=== PATIENT | male | born 1980 | race African-American/Black ===

== ENCOUNTER 2019-02-05 02:10 | Inpatient (IN) | payer BC, SELFPAY ==
[2019-02-05] MEDS ORDERED: HYDROcodone/Acetaminophen 10/325 mg Tablet ONE (03:02)
[2019-02-05] MEDS ORDERED: Ketorolac Tromethamine 30 MG/ML VIAL ONE (04:29)
[2019-02-05 04:36] LABS: #Lymphocytes 0.8 thou/uL (1.20-3.40); #Monocytes 0.1 thou/uL (0.11-0.59); #Neutrophils 2.8 thou/uL (1.40-6.50); %Basophils 0.2 % (0.0-1.0); %Eosinophils 0.3 % (0.0-10.0); %Lymphocytes 20.5 % (21.0-51.0); %Monocytes 3.9 % (0.0-10.0); Hemoglobin 16.1 g/dL (14.0-18.0); Mean Corpuscular HGB CONC 34.8 g/dL (32.0-36.0); Mean Corpuscular Hemoglobin 31.5 pg (27.0-31.0); Mean Corpuscular Volume 90.5 fL (78.0-98.0); Mean Platelet Volume 7.8 fL (7.4-10.4); Platelet Count 185 thou/uL (130-400); RBC Distribution Width 11.9 % (11.5-14.5); Red Blood Cell (RBC) Count 5.12 mill/uL (4.70-6.10); White Blood Cell (WBC) Count 3.7 thou/uL (4.8-10.8)
[2019-02-05] MEDS ORDERED: Promethazine HCl 25 MG/ML VIAL IM PRN ×2 (04:40→19:54)
[2019-02-05] MEDS ORDERED: Ondansetron PF 4 MG/2 ML Vial IVP PRN (04:40)
[2019-02-05] MEDS ORDERED: Dextrose 5% in Water 1,000 ML IV PRN (04:40)
[2019-02-05] MEDS ORDERED: HumaLOG 300 UNITS/3 ML VIAL SC PRN (04:40)
[2019-02-05] MEDS ORDERED: Dextrose 50% Abboject 50 ML SYRINGE SLOW IVP PRN (04:40)
[2019-02-05] MEDS ORDERED: hydrALAZINE 20 MG/ML VIAL SLOW IVP PRN (04:40)
[2019-02-05] MEDS ORDERED: traMADol HCl 50 MG TAB PO PRN ×2 (04:43)
[2019-02-05 04:58] LABS: ALT (SGPT) 28 U/L (8-55); AST (SGOT) 26 U/L (5-34); Albumin 5.1 g/dL (3.5-5.0); Alkaline Phosphatase 62 U/L (40-110); Anion Gap 13 mmol/L (10-20); BUN (Urea Nitrogen) 6 mg/dL (8.9-20.6); Bilirubin, Total 0.4 mg/dL (0.2-1.2); Calc. Creatinine Clearance 0 mL/min (70-130); Calcium 10.1 mg/dL (7.8-10.44); Carbon Dioxide 29 mmol/L (22-29); Chloride 103 mmol/L (98-107); Estimated GFR-MDRD Greater than 90; Globulin 3.7 g/dL (2.4-3.5); Glucose 111 mg/dL (70-105); Potassium 3.7 mmol/L (3.5-5.1); Protein, Total 8.8 g/dL (6.0-8.3); Sodium 141 mmol/L (136-145)
[2019-02-05] MEDS ORDERED: CEFAZOLIN 1 GM VIAL SLOW IVP SCH (05:00)
[2019-02-05] MEDS ORDERED: CEFAZOLIN 2 GM in Premix Bag 1 BAG IVPB SCH (05:00)
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
[2019-02-05] MEDS: Sodium Chloride 0.9% 1,000 ML IV SCH ×3 (06:36→22:31)
[2019-02-05] MEDS: Acetaminophen 1,000 MG in Premix Bag 1 BAG IVPB SCH ×4 (06:36→23:35)
[2019-02-05] MEDS: Ketorolac Tromethamine 30 MG/ML VIAL IVP SCH ×3 (06:37→19:00)
[2019-02-05 06:59] VITALS: BMI 24.2
[2019-02-05] MEDS: Famotidine/PF 20 mg/2ml Vial SLOW IVP SCH ×2 (08:21→22:31)
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
[2019-02-05] MEDS: Morphine 4 MG/ML VIAL SLOW IVP PRN ×2 (10:14→13:03)
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
[2019-02-05] MEDS ORDERED: Fentanyl 100 MCG/2 ML VIAL ONE (15:18)
[2019-02-05] MEDS ORDERED: Lidocaine 2% Jelly 5 ML TUBE ONE (15:18)
[2019-02-05] MEDS ORDERED: HYDROmorphone 0.5 MG/0.5 ML SYRINGE ONE ×2 (15:18→18:34)
[2019-02-05] MEDS ORDERED: Midazolam HCl 2 mg/2 ml Vial ONE (15:18)
[2019-02-05] MEDS ORDERED: Oxymetazoline HCl 0.05% ( 15 ML ) ONE (15:18)
[2019-02-05] MEDS ORDERED: Chlorhexidine Gluconate 15 ML UDCUP SSP ONE (15:19)
[2019-02-05] MEDS ORDERED: Lidocaine 1% w/Epinephrine 1:100K 20 ML VIAL ONE (15:19)
[2019-02-05] MEDS ORDERED: Hydrocortisone 1% Cream 30 GM TUBE ONE (15:19)
[2019-02-05] MEDS ORDERED: Rocuronium Bromide 10 MG/ML (10ML VIAL) ONE (16:00)
[2019-02-05] MEDS ORDERED: PROPOFOL 200 MG/20 ML VIAL ONE (16:00)
[2019-02-05] MEDS ORDERED: Ondansetron PF 4 MG/2 ML Vial ONE (16:00)
[2019-02-05] MEDS ORDERED: Lidocaine 1% PF 5 ML VIAL ONE (16:00)
[2019-02-05] MEDS ORDERED: Dexamethasone 20 MG/5 ML VIAL ONE (16:00)
[2019-02-05] MEDS ORDERED: Glycopyrrolate 0.2 MG/ML 5 ML SYRINGE ONE (16:00)
[2019-02-05] MEDS ORDERED: Bacitracin Zinc Ointment 30 gm TUBE ONE (19:25)
[2019-02-05] MEDS ORDERED: Ondansetron HCl/PF 4 MG/2 ML Vial IVP PRN (19:54)
[2019-02-05] MEDS ORDERED: Promethazine HCl 25 MG/ML VIAL SLOW IVP PRN (19:54)
[2019-02-05] MEDS ORDERED: HYDROmorphone 2 MG/ML VIAL SLOW IVP PRN (19:54)
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
[2019-02-05] MEDS ORDERED: Labetalol HCl 100 MG/20 ML VIAL ONE (20:43)
[2019-02-05] MEDS ORDERED: hydrALAZINE 20 MG/ML VIAL ONE (21:41)
[2019-02-05] MEDS ORDERED: Ondansetron PF 4 MG/2 ML Vial SLOW IVP PRN (22:45)
[2019-02-05] MEDS: D5 0.9% NS w/ 20 mEq KCl 1,000 ML IV SCH (23:34)
[2019-02-05] MEDS: Clindamycin/D5W 900 MG in Premix Bag 1 BAG IVPB SCH (23:36)
[2019-02-05] MEDS: Ibuprofen 100 MG/5 ML UDCUP PO SCH (23:36)
[2019-02-06] MEDS: Ibuprofen 100 MG/5 ML UDCUP PO SCH ×2 (05:40→12:39)
[2019-02-06] MEDS: Dexamethasone 4 mg/ml Vial SLOW IVP SCH ×2 (05:40→14:50)
[2019-02-06] MEDS: Sodium Chloride 0.9% 1,000 ML IV SCH ×2 (06:15→14:31)
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
[2019-02-06] MEDS: Clindamycin/D5W 900 MG in Premix Bag 1 BAG IVPB SCH (08:13)
[2019-02-06] MEDS: Famotidine/PF 20 mg/2ml Vial SLOW IVP SCH (08:15)
[2019-02-06] MEDS: Chlorhexidine Gluconate 15 ML UDCUP SSP SCH ×2 (08:16→14:44)
[2019-02-06] MEDS: Morphine 2 MG/ML SYRINGE SLOW IVP PRN ×2 (08:22→12:37)
--- NOTE | 2019-02-06 10:04 | CT ---
FACIAL BONES CT: Date: 02/06/19 INDICATION: Surgery, follow-up. Reference made to exam from previous day. FINDINGS: Interval placement of hardware fixation of the bilateral mandibular fractures with associated streak artifact. Alignment of the comminuted fractures is near anatomic. Temporomandibular joints maintain a ppropriate alignment. Mild osseous irregularity of the nasal bones is present, similar appearing. Mul tifocal periapical lucency indicative of odontogenic disease noted. Interval extraction of multiple b ilateral maxillary molars. There is prominence soft tissue edema of the face bilaterally involving th e buccal and mental regions. IMPRESSION: 1. Interval fixation of bilateral mandibular fractures and interval bilateral maxillary molar extrac tions. 2. Mild irregularity of nasal bones, stable appearing. POS: C
[2019-02-06] MEDS ORDERED: Acetaminophen/Codeine Oral Solution PO PRN (11:12)
[2019-02-06 11:26] VITALS: BP 140/88; TEMP 97.9
[2019-02-06] MEDS ORDERED: Clindamycin 75 mg/5 ml Oral Suspension PO SCH (12:00)
[2019-02-06] MEDS: D5 0.9% NS w/ 20 mEq KCl 1,000 ML IV SCH (12:43)
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
== END 2019-02-06 15:00 | disposition home or self-care (01) | DRG 132 ==
LOC: ERS 02:10 → SURG B 04:40
PROVIDERS: ADMIT Surgery; ATTEND Surgery
PROC: 0NSV04Z Reposition Left Mandible with Internal Fixation Device, Open Approach (ICD-10-PCS; principal; 2019-02-05)
PROC: 0NST04Z Reposition Right Mandible with Internal Fixation Device, Open Approach (ICD-10-PCS; 2019-02-05)
PROC: 0CDWXZ1 Extraction of Upper Tooth, Multiple, External Approach (ICD-10-PCS; 2019-02-05)
PROC: 0CDXXZ0 Extraction of Lower Tooth, Single, External Approach (ICD-10-PCS; 2019-02-05)
DX: S02.651B Fracture of angle of right mandible, initial encounter for open fracture (principal); Y04.0XXA Assault by unarmed brawl or fight, initial encounter; K02.9 Dental caries, unspecified; S02.652B Fracture of angle of left mandible, initial encounter for open fracture; Z98.890 Other specified postprocedural states; Z79.899 Other long term (current) drug therapy
CPT/HCPCS: 36415; 70110; 70486; 80053; 85025; 86850; 86900; 86901; 96374; C1713; J0131; J0360; J0690; J1100; J1170; J1885; J2001; J2250; J2270; J2405; J2704; J3010; J3480; J3490; S0028

== ENCOUNTER 2019-06-20 06:03 | Day surgery (SDC) | payer BC, OTHER ==
[2019-06-15 14:35] VITALS: BMI 26.6
[2019-06-20] MEDS ORDERED: Chlorhexidine Gluconate 15 ML UDCUP SSP ONE (06:30)
[2019-06-20] MEDS ORDERED: Clindamycin/D5W 900 mg/50 ml Premix Bag ONE (06:34)
[2019-06-20] MEDS ORDERED: Fentanyl 100 MCG/2 ML VIAL ONE (06:37)
[2019-06-20] MEDS ORDERED: Lidocaine 1% w/Epinephrine 1:100K 20 ML VIAL ONE (06:47)
[2019-06-20] MEDS ORDERED: Famotidine/PF 20 mg/2ml Vial ONE (07:21)
[2019-06-20] MEDS ORDERED: Midazolam HCl 2 mg/2 ml Vial ONE (07:25)
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
[2019-06-20] MEDS ORDERED: Ondansetron PF 4 MG/2 ML Vial ONE (11:28)
[2019-06-20] MEDS ORDERED: Lidocaine 1% PF 5 ML VIAL ONE (11:28)
[2019-06-20] MEDS ORDERED: PROPOFOL 200 MG/20 ML VIAL ONE (11:28)
[2019-06-20] MEDS ORDERED: Esmolol 100 MG/10 ML VIAL ONE (11:28)
[2019-06-20] MEDS ORDERED: Dexamethasone 20 MG/5 ML VIAL ONE (11:28)
[2019-06-20] MEDS ORDERED: Ketorolac Tromethamine 30 MG/ML VIAL ONE (11:28)
[2019-06-20] MEDS ORDERED: Metoclopramide HCl 10 MG/2 ML VIAL ONE (11:28)
[2019-06-20] MEDS ORDERED: Rocuronium Bromide 10 MG/ML (10ML VIAL) ONE (11:28)
[2019-06-20] MEDS ORDERED: Glycopyrrolate 0.2 MG/ML 5 ML SYRINGE ONE (11:28)
== END 2019-06-20 10:30 | disposition home or self-care (01) ==
LOC: SDC 06:03
PROVIDERS: ATTEND Dentist Oral and Maxillofacial Surgery
PROC: 0CDXXZ0 Extraction of Lower Tooth, Single, External Approach (ICD-10-PCS; principal; 2019-06-20)
PROC: 0CP Mouth and Throat, Removal (ICD-10-PCS; principal; 2019-06-20)
DX: T85.79XA Infection and inflammatory reaction due to other internal prosthetic devices, implants and grafts, initial encounter (principal); K02.9 Dental caries, unspecified; K05.30 Chronic periodontitis, unspecified
CPT/HCPCS: J1100; J1885; J2001; J2250; J2405; J2704; J2765; J3010; J3490; S0028

== ENCOUNTER 2019-07-28 09:22 | Emergency (ER) | payer BC ==
[2019-07-28] MEDS ORDERED: Ketorolac Tromethamine 30 MG/ML VIAL ONE (09:49)
== END 2019-07-28 10:10 | disposition home or self-care (01) ==
LOC: ERS 09:22
DX: M54.32 Sciatica, left side (principal); I10 Essential (primary) hypertension
CPT/HCPCS: 96372; 99283; J1885

== ENCOUNTER 2020-01-07 11:06 | Emergency (ER) | payer BC | END 2020-01-07 12:11 | disposition left against medical advice (07) | LOC: ERS 11:06 | DX: Z53.21 Procedure and treatment not carried out due to patient leaving prior to being seen by health care provider (principal) ==

== ENCOUNTER 2024-03-27 15:24 | Emergency (ER) | payer OTHER, SELFPAY | END 2024-03-27 15:36 | disposition home or self-care (01) | LOC: ERS 15:24 | DX: K08.89 Other specified disorders of teeth and supporting structures (principal) | CPT/HCPCS: 99282 ==